=== PATIENT | male | born 1955 | race African-American/Black ===

== ENCOUNTER 2019-12-14 10:20 | Observation (INO) ==
[2019-12-14] MEDS ORDERED: ONDANSETRON 4 MG/2 ML VIAL IV STA (10:49)
[2019-12-14 11:50] LABS: Basophils % 0.7 % (0.0-0.8); Eosinophils # 0.1 10*3/uL (0.0-0.87); Eosinophils % 3.3 % (0.00-10.9); Hematocrit 27.8 VOL% (42.0-52.0); Hemoglobin 8.3 GM/DL (14.0-18.0); Immature Granulocytes % 0.2 %; Immature Granulocytes Absolute 0.01 #; Lymphocytes # 1.3 10*3/uL (1.4-4.0); Lymphocytes % 29.6 % (21.2-54.2); Mean Corpuscular HGB Conc 29.9 GM/DL (32-36); Mean Corpuscular Volume 81.8 FL (87-102); Mean Platelet Volume 9.7 FL (9.6-12.0); Monocytes % 11.5 % (1.7-12.7); Neutrophils % 54.7 % (38.7-73.9); Platelet Count 219 T/CUMM (130-400); Red Cell Distribution Width 22.9 % (9.3-17.3); White Blood Count 4.3 T/CUMM (4-12)
[2019-12-14] MEDS ORDERED: AMINOCAPROIC ACID 500 MG TABLET PO ONE (11:54)
[2019-12-14 12:12] LABS: INR 1.4; PT Patient Result 14.7 SECS (9.6-12.2); Partial Thromboplastin Time 26.1 SECS (20.8-36.0)
[2019-12-14 12:15] LABS: Albumin 3.4 G/DL (3.4-5.0); Bilirubin,Total 0.7 MG/DL (0.2-1.0); Calcium 9.5 MG/DL (8.5-10.1); Osmolality,Calculated 279.5 MOS/KG (273-304); Total Protein 7.7 G/DL (6.4-8.3)
[2019-12-14 12:30] LABS: Anisocytosis 1+; Burr Cells Few; Platelet Estimate Normal; Poikilocytosis 1+
[2019-12-14] MEDS ORDERED: TRANEXAMIC ACID 1,000 MG in SODIUM CHLORIDE 0.9% 100 ML IV ONE (12:30)
[2019-12-14 12:31] LABS: Acanthocytes Few
[2019-12-14] MEDS ORDERED: ONDANSETRON 4 MG/2 ML VIAL IV PRN (15:43)
[2019-12-14] MEDS ORDERED: GLUCAGON 1 MG VIAL IM PRN (15:58)
[2019-12-14] MEDS ORDERED: DEXTROSE 10% 250 ML BAG IV PRN (15:58)
[2019-12-14] MEDS ORDERED: SODIUM CHLOR 0.9% KCL 20 MEQ 20 MEQ/1,000 ML BAG IV SCH (16:00)
[2019-12-14] MEDS ORDERED: SODIUM CHLORIDE 0.9% 1,000 ML IV SCH (16:00)
[2019-12-14] MEDS: INSULIN LISPRO 100 UNIT/ML SUBCUT SCH ×2 (16:11→21:26)
[2019-12-14 17:08] LABS: Hematocrit 26.4 VOL% (42.0-52.0); Hemoglobin 8.1 GM/DL (14.0-18.0)
[2019-12-14] MEDS ORDERED: ATORVASTATIN 80 MG TABLET PO SCH (21:00)
[2019-12-14] MEDS ORDERED: APIXABAN 5 MG TABLET PO SCH (21:00)
[2019-12-14] MEDS ORDERED: FUROSEMIDE 80 MG TABLET PO SCH (21:00)
[2019-12-14] MEDS: carvediloL 25 MG TABLET PO SCH (21:18)
[2019-12-15 05:25] LABS: Basophils % 0.4 % (0.0-0.8); Eosinophils # 0.2 10*3/uL (0.0-0.87); Eosinophils % 5.1 % (0.00-10.9); Hematocrit 26.5 VOL% (42.0-52.0); Hemoglobin 7.8 GM/DL (14.0-18.0); Immature Granulocytes % 0.2 %; Immature Granulocytes Absolute 0.01 #; Lymphocytes # 1.1 10*3/uL (1.4-4.0); Lymphocytes % 24.1 % (21.2-54.2); Mean Corpuscular HGB Conc 29.4 GM/DL (32-36); Mean Corpuscular Volume 81.5 FL (87-102); Mean Platelet Volume 9.8 FL (9.6-12.0); Monocytes % 12.2 % (1.7-12.7); Platelet Count 258 T/CUMM (130-400); Red Blood Count 3.25 MC/CUMM (3.8-5.5); Red Cell Distribution Width 23.1 % (9.3-17.3); White Blood Count 4.7 T/CUMM (4-12)
[2019-12-15 05:49] LABS: Albumin 3.1 G/DL (3.4-5.0); Bilirubin,Total 0.7 MG/DL (0.2-1.0); Calcium 8.8 MG/DL (8.5-10.1); Osmolality,Calculated 280.5 MOS/KG (273-304); Total Protein 6.6 G/DL (6.4-8.3)
[2019-12-15 06:27] LABS: Anisocytosis 1+; Hypochromasia 1+; Ovalocytes 1+; Platelet Estimate Adequate
[2019-12-15] MEDS ORDERED: LEVOTHYROXINE 75 MCG TABLET PO SCH (06:30)
[2019-12-15] MEDS ORDERED: ASPIRIN EC 81 MG TABLET PO SCH (09:00)
[2019-12-15] MEDS ORDERED: AMIODARONE 200 MG TABLET PO SCH (09:00)
[2019-12-15] MEDS ORDERED: amLODIPine 10 MG TABLET PO SCH (09:00)
[2019-12-15] MEDS ORDERED: PANTOPRAZOLE 40 MG TABLET PO SCH (09:00)
[2019-12-15] MEDS: INSULIN LISPRO 100 UNIT/ML SUBCUT SCH (09:30)
[2019-12-15] MEDS: carvediloL 25 MG TABLET PO SCH (09:30)
[2019-12-15 14:40] VITALS: BP 119/79
== END 2019-12-15 12:34 | disposition home or self-care (01) ==
LOC: N.ED 10:20 → N.EDINP 10:20 → N.2E 15:24
PROVIDERS: ADMIT Internal Medicine; ATTEND Internal Medicine

== ENCOUNTER 2020-03-02 20:44 | Inpatient (IN) ==
[2020-03-02 22:48] LABS: Basophils % 0.7 % (0.0-0.8); Eosinophils # 0.7 10*3/uL (0.0-0.87); Eosinophils % 12.2 % (0.00-10.9); Hematocrit 26.8 VOL% (42.0-52.0); Hemoglobin 7.6 GM/DL (14.0-18.0); Immature Granulocytes % 0.2 %; Immature Granulocytes Absolute 0.01 #; Lymphocytes # 1.2 10*3/uL (1.4-4.0); Lymphocytes % 21.8 % (21.2-54.2); Mean Corpuscular HGB Conc 28.4 GM/DL (32-36); Mean Corpuscular Volume 73.6 FL (87-102); Mean Platelet Volume 10.3 FL (9.6-12.0); Monocytes % 8.7 % (1.7-12.7); NRBC # 0.03 10*3/uL; Neutrophils % 56.4 % (38.7-73.9); Platelet Count 265 T/CUMM (130-400); Red Blood Count 3.64 MC/CUMM (3.8-5.5); Red Cell Distribution Width 21.3 % (9.3-17.3); White Blood Count 5.7 T/CUMM (4-12)
[2020-03-02 23:06] LABS: Albumin 3.5 G/DL (3.4-5.0); Bilirubin,Total 0.6 MG/DL (0.2-1.0); Calcium 8.7 MG/DL (8.5-10.1); Total Protein 8.3 G/DL (6.4-8.3)
[2020-03-02 23:17] LABS: Eosinophils 13 % (0-10); Lymphocytes 21 % (20-55); Segmented Neutrophils 55 % (50-85); Total Cells Counted 100
[2020-03-02 23:19] LABS: Acanthocytes 1+; Atypical Lymphocytes Few; Hypochromasia 2+; Ovalocytes 1+; Platelet Estimate Normal; Reactive Lymphocytes Few
[2020-03-02 23:20] LABS: Schistocytes Few
[2020-03-02 23:21] LABS: Poikilocytosis 1+
[2020-03-02] MEDS ORDERED: SODIUM CHLORIDE 0.9% 1,000 ML IV PRN (23:32)
[2020-03-02] MEDS ORDERED: FUROSEMIDE 40 MG/4 ML VIAL IV STA (23:49)
[2020-03-03] MEDS ORDERED: ONDANSETRON 4 MG/2 ML VIAL IV PRN (05:46)
[2020-03-03] MEDS ORDERED: ACETAMINOPHEN 325 MG TABLET PO PRN (05:46)
[2020-03-03] MEDS ORDERED: DOCUSATE SODIUM 100 MG CAPSULE PO PRN (05:46)
[2020-03-03] MEDS ORDERED: DEXTROSE 10% 250 ML BAG IV PRN (05:46)
[2020-03-03] MEDS ORDERED: GLUCAGON 1 MG VIAL IM PRN (05:46)
[2020-03-03] MEDS ORDERED: MAGNESIUM SULF RIDER 2 GM in PREMIX 1 EACH IV PRN (05:46)
[2020-03-03] MEDS ORDERED: MAGNESIUM SULF RIDER 4 GM in PREMIX 1 EACH IV PRN (05:46)
[2020-03-03] MEDS: INSULIN LISPRO 100 UNIT/ML SUBCUT SCH ×4 (09:20→21:06)
[2020-03-03] MEDS: PANTOPRAZOLE 40 MG TABLET PO SCH (09:20)
[2020-03-03] MEDS: ISOSORBIDE MONONITRATE 30 MG TABLET PO SCH (12:50)
[2020-03-03] MEDS ORDERED: FUROSEMIDE 40 MG/4 ML VIAL IV SCH (16:00)
[2020-03-03] MEDS: hydrALAZINE 10 MG TABLET PO SCH ×2 (17:10→21:06)
[2020-03-03] MEDS: APIXABAN 5 MG TABLET PO SCH (21:05)
[2020-03-03] MEDS: ATORVASTATIN 80 MG TABLET PO SCH (21:05)
[2020-03-03] MEDS: carvediloL 25 MG TABLET PO SCH (21:05)
[2020-03-03] MEDS: FUROSEMIDE 40 MG/4 ML VIAL IV SCH (21:06)
[2020-03-04] MEDS ORDERED: LEVOTHYROXINE 75 MCG TABLET PO SCH (06:30)
[2020-03-04 06:41] LABS: Basophils % 0.7 % (0.0-0.8); Eosinophils # 0.8 10*3/uL (0.0-0.87); Eosinophils % 13.3 % (0.00-10.9); Hematocrit 28.6 VOL% (42.0-52.0); Hemoglobin 8.5 GM/DL (14.0-18.0); Immature Granulocytes % 0.3 %; Immature Granulocytes Absolute 0.02 #; Lymphocytes % 17.8 % (21.2-54.2); Mean Corpuscular HGB Conc 29.7 GM/DL (32-36); Mean Corpuscular Volume 73.7 FL (87-102); Monocytes % 6.4 % (1.7-12.7); Neutrophils % 61.5 % (38.7-73.9); Platelet Count 283 T/CUMM (130-400); Red Blood Count 3.88 MC/CUMM (3.8-5.5); Red Cell Distribution Width 21.6 % (9.3-17.3); White Blood Count 5.8 T/CUMM (4-12)
[2020-03-04 07:10] LABS: Eosinophils 15 % (0-10); Hypochromasia 1+; Lymphocytes 9 % (20-55); Nucleated Red Blood Cells 1 (0-5); Ovalocytes Slight; Platelet Estimate Adequate; Segmented Neutrophils 71 % (50-85); Total Cells Counted 100
[2020-03-04 07:33] LABS: Calcium 8.7 MG/DL (8.5-10.1); Ferritin 20.8 ng/ml (26-388); Osmolality,Calculated 280.5 MOS/KG (273-304); Risk Ratio 2.83
[2020-03-04 07:58] LABS: Folate 6.9 NG/ML (5.4-24.0); Vitamin B12 393 PG/ML (211-911)
[2020-03-04 08:18] LABS: Sedimentation Rate-Westergren 21 MM/HR (0-20)
[2020-03-04] MEDS ORDERED: ASPIRIN EC 81 MG TABLET PO SCH (09:00)
[2020-03-04] MEDS: ISOSORBIDE MONONITRATE 30 MG TABLET PO SCH (09:30)
[2020-03-04] MEDS: amLODIPine 10 MG TABLET PO SCH (09:31)
[2020-03-04] MEDS: PANTOPRAZOLE 40 MG TABLET PO SCH (09:31)
[2020-03-04] MEDS: hydrALAZINE 10 MG TABLET PO SCH ×3 (09:31→22:35)
[2020-03-04] MEDS: APIXABAN 5 MG TABLET PO SCH (09:31)
[2020-03-04] MEDS: carvediloL 25 MG TABLET PO SCH ×2 (09:31→16:35)
[2020-03-04] MEDS: POTASSIUM CHLORIDE 20 MEQ TABLET PO PRN (09:32)
[2020-03-04] MEDS: AMIODARONE 200 MG TABLET PO SCH (09:32)
[2020-03-04] MEDS: IRON SUCROSE 200 MG in SODIUM CHLORIDE 0.9% 100 ML IV SCH (09:33)
[2020-03-04] MEDS: FUROSEMIDE 40 MG/4 ML VIAL IV SCH ×2 (09:33→21:25)
[2020-03-04] MEDS: INSULIN LISPRO 100 UNIT/ML SUBCUT SCH ×4 (09:45→21:24)
[2020-03-04 11:34] LABS: Hemoglobin A1 (Alkaline) 97.7 % (96.5-98.5); Hemoglobin A2 (Alkaline) 2.3 % (1.5-3.5)
[2020-03-04] MEDS ORDERED: POTASSIUM CHLORIDE 20 MEQ TABLET PO ONE (11:35)
[2020-03-04] MEDS: metOLazone 5 MG TABLET PO SCH (12:04)
[2020-03-04] MEDS: ATORVASTATIN 80 MG TABLET PO SCH (21:24)
[2020-03-05] MEDS: LEVOTHYROXINE 100 MCG VIAL IV SCH (06:08)
[2020-03-05 06:27] LABS: Basophils % 0.6 % (0.0-0.8); Eosinophils # 0.8 10*3/uL (0.0-0.87); Eosinophils % 16.9 % (0.00-10.9); Hematocrit 25.2 VOL% (42.0-52.0); Hemoglobin 7.5 GM/DL (14.0-18.0); Immature Granulocytes % 0.2 %; Immature Granulocytes Absolute 0.01 #; Lymphocytes # 1.1 10*3/uL (1.4-4.0); Lymphocytes % 23.5 % (21.2-54.2); Mean Corpuscular HGB Conc 29.8 GM/DL (32-36); Mean Platelet Volume 10.7 FL (9.6-12.0); Monocytes % 8.9 % (1.7-12.7); NRBC # 0.04 10*3/uL; Neutrophils % 49.9 % (38.7-73.9); Platelet Count 272 T/CUMM (130-400); Red Blood Count 3.45 MC/CUMM (3.8-5.5); Red Cell Distribution Width 21.9 % (9.3-17.3); White Blood Count 4.9 T/CUMM (4-12)
[2020-03-05 06:49] LABS: Calcium 9.2 MG/DL (8.5-10.1)
[2020-03-05 07:12] LABS: Band Neutrophils 1 % (0-10); Eosinophils 21 % (0-10); Lymphocytes 24 % (20-55); Platelet Estimate Normal; Segmented Neutrophils 50 % (50-85); Total Cells Counted 100
[2020-03-05 07:13] LABS: Anisocytosis 2+; Burr Cells Few; Hypochromasia 1+; Poikilocytosis 1+; Target Cells Few
[2020-03-05] MEDS: PANTOPRAZOLE 40 MG TABLET PO SCH (08:31)
[2020-03-05] MEDS: FUROSEMIDE 40 MG/4 ML VIAL IV SCH ×2 (08:32→21:37)
[2020-03-05] MEDS: MULTIVITAMIN (BEROCCA) TABLET PO SCH (08:32)
[2020-03-05] MEDS: hydrALAZINE 10 MG TABLET PO SCH ×3 (08:33→21:35)
[2020-03-05] MEDS: carvediloL 25 MG TABLET PO SCH ×2 (08:33→16:18)
[2020-03-05] MEDS: metOLazone 5 MG TABLET PO SCH (08:33)
[2020-03-05] MEDS: amLODIPine 10 MG TABLET PO SCH (08:33)
[2020-03-05] MEDS: ISOSORBIDE MONONITRATE 30 MG TABLET PO SCH (08:34)
[2020-03-05] MEDS: AMIODARONE 200 MG TABLET PO SCH (08:35)
[2020-03-05] MEDS: IRON SUCROSE 200 MG in SODIUM CHLORIDE 0.9% 100 ML IV SCH (09:54)
[2020-03-05] MEDS: INSULIN LISPRO 100 UNIT/ML SUBCUT SCH ×4 (09:55→21:35)
[2020-03-05] MEDS: ATORVASTATIN 80 MG TABLET PO SCH (21:36)
[2020-03-06] MEDS: LEVOTHYROXINE 100 MCG VIAL IV SCH (06:03)
[2020-03-06 07:06] LABS: Basophils # 0.1 10*3/uL (0.0-0.2); Basophils % 0.9 % (0.0-0.8); Eosinophils % 16.9 % (0.00-10.9); Hematocrit 26.5 VOL% (42.0-52.0); Hemoglobin 7.8 GM/DL (14.0-18.0); Immature Granulocytes % 0.4 %; Immature Granulocytes Absolute 0.02 #; Lymphocytes # 1.2 10*3/uL (1.4-4.0); Lymphocytes % 21.9 % (21.2-54.2); Mean Corpuscular HGB Conc 29.4 GM/DL (32-36); Mean Platelet Volume 10.2 FL (9.6-12.0); Monocytes % 10.7 % (1.7-12.7); NRBC # 0.07 10*3/uL; Neutrophils % 49.2 % (38.7-73.9); Platelet Count 283 T/CUMM (130-400); Red Blood Count 3.63 MC/CUMM (3.8-5.5); Red Cell Distribution Width 22.6 % (9.3-17.3); White Blood Count 5.6 T/CUMM (4-12)
[2020-03-06 07:24] LABS: Calcium 9.6 MG/DL (8.5-10.1); Osmolality,Calculated 276.1 MOS/KG (273-304)
[2020-03-06] MEDS: ISOSORBIDE MONONITRATE 30 MG TABLET PO SCH (08:51)
[2020-03-06] MEDS: AMIODARONE 200 MG TABLET PO SCH (08:52)
[2020-03-06] MEDS: MULTIVITAMIN (BEROCCA) TABLET PO SCH (08:52)
[2020-03-06] MEDS: POTASSIUM CHLORIDE 20 MEQ TABLET PO PRN ×2 (08:52→11:42)
[2020-03-06] MEDS: metOLazone 5 MG TABLET PO SCH (08:53)
[2020-03-06] MEDS: hydrALAZINE 10 MG TABLET PO SCH ×3 (08:53→20:57)
[2020-03-06] MEDS: PANTOPRAZOLE 40 MG TABLET PO SCH (08:54)
[2020-03-06] MEDS: FUROSEMIDE 40 MG/4 ML VIAL IV SCH (08:54)
[2020-03-06] MEDS: carvediloL 25 MG TABLET PO SCH ×2 (08:54→16:36)
[2020-03-06] MEDS: IRON SUCROSE 200 MG in SODIUM CHLORIDE 0.9% 100 ML IV SCH (08:55)
[2020-03-06] MEDS: INSULIN LISPRO 100 UNIT/ML SUBCUT SCH ×4 (09:32→20:52)
[2020-03-06 09:50] LABS: Acanthocytes Few; Atypical Lymphocytes Few; Band Neutrophils 1 % (0-10); Burr Cells Slight; Eosinophils 12 % (0-10); Hypochromasia 4+; Lymphocytes 23 % (20-55); Ovalocytes Few; Polychromasia Slight; Reactive Lymphocytes Few; Schistocytes Few; Segmented Neutrophils 54 % (50-85); Total Cells Counted 100
[2020-03-06 09:51] LABS: Platelet Estimate Normal
[2020-03-06] MEDS: POTASSIUM CHLORIDE 20 MEQ TABLET PO SCH (16:10)
[2020-03-06] MEDS: FUROSEMIDE 40 MG TABLET PO SCH (16:10)
[2020-03-06] MEDS: ATORVASTATIN 80 MG TABLET PO SCH (20:52)
[2020-03-07 07:38] LABS: Basophils % 0.5 % (0.0-0.8); Eosinophils # 0.9 10*3/uL (0.0-0.87); Eosinophils % 16.2 % (0.00-10.9); Hematocrit 25.5 VOL% (42.0-52.0); Hemoglobin 7.9 GM/DL (14.0-18.0); Immature Granulocytes % 0.4 %; Immature Granulocytes Absolute 0.02 #; Lymphocytes # 1.1 10*3/uL (1.4-4.0); Lymphocytes % 19.4 % (21.2-54.2); Mean Platelet Volume 10.2 FL (9.6-12.0); Monocytes % 8.4 % (1.7-12.7); NRBC # 0.05 10*3/uL; Neutrophils % 55.1 % (38.7-73.9); Platelet Count 272 T/CUMM (130-400); Red Blood Count 3.54 MC/CUMM (3.8-5.5); Red Cell Distribution Width 23.2 % (9.3-17.3); White Blood Count 5.6 T/CUMM (4-12)
[2020-03-07 07:45] LABS: Calcium 9.4 MG/DL (8.5-10.1); Osmolality,Calculated 278.1 MOS/KG (273-304)
[2020-03-07 08:24] VITALS: BP 97/64
[2020-03-07] MEDS: INSULIN LISPRO 100 UNIT/ML SUBCUT SCH (08:38)
[2020-03-07] MEDS: ISOSORBIDE MONONITRATE 30 MG TABLET PO SCH (08:39)
[2020-03-07] MEDS: MULTIVITAMIN (BEROCCA) TABLET PO SCH (08:39)
[2020-03-07] MEDS: carvediloL 25 MG TABLET PO SCH (08:40)
[2020-03-07] MEDS: FUROSEMIDE 40 MG TABLET PO SCH (08:40)
[2020-03-07] MEDS: hydrALAZINE 10 MG TABLET PO SCH (08:40)
[2020-03-07] MEDS: AMIODARONE 200 MG TABLET PO SCH (08:40)
[2020-03-07] MEDS: POTASSIUM CHLORIDE 20 MEQ TABLET PO SCH (08:40)
[2020-03-07] MEDS: PANTOPRAZOLE 40 MG TABLET PO SCH (08:40)
[2020-03-07] MEDS: IRON SUCROSE 200 MG in SODIUM CHLORIDE 0.9% 100 ML IV SCH (08:41)
[2020-03-07] MEDS: LEVOTHYROXINE 100 MCG VIAL IV SCH (08:42)
[2020-03-07 09:03] LABS: Band Neutrophils 1 % (0-10); Eosinophils 21 % (0-10); Lymphocytes 19 % (20-55); Nucleated Red Blood Cells 1 (0-5); Segmented Neutrophils 50 % (50-85); Total Cells Counted 100
[2020-03-07 09:04] LABS: Anisocytosis 2+; Basophilic Stippling Slight; Burr Cells Few; Hypochromasia 1+; Macrocytosis 1+; Platelet Estimate Normal; Poikilocytosis 1+; Target Cells Few
== END 2020-03-07 11:55 | disposition home or self-care (01) | DRG 291 ==
LOC: N.ED 20:44 → N.EDINP 03-03 02:58 → N.TELEN 03-03 16:22
PROVIDERS: ADMIT Internal Medicine; ATTEND Internal Medicine

== ENCOUNTER 2020-03-20 02:24 | Observation (INO) ==
[2020-03-20 02:59] LABS: Basophils % 0.6 % (0.0-0.8); Eosinophils # 0.1 10*3/uL (0.0-0.87); Eosinophils % 1.9 % (0.00-10.9); Hematocrit 37.1 VOL% (42.0-52.0); Immature Granulocytes % 0.3 %; Immature Granulocytes Absolute 0.02 #; Lymphocytes # 1.1 10*3/uL (1.4-4.0); Lymphocytes % 17.9 % (21.2-54.2); Mean Corpuscular HGB Conc 28.8 GM/DL (32-36); Monocytes % 6.1 % (1.7-12.7); Neutrophils % 73.2 % (38.7-73.9); Platelet Count 218 T/CUMM (130-400); Red Blood Count 4.58 MC/CUMM (3.8-5.5); Red Cell Distribution Width 30.3 % (9.3-17.3); White Blood Count 6.4 T/CUMM (4-12)
[2020-03-20] MEDS ORDERED: ONDANSETRON 4 MG/2 ML VIAL IV STA (03:07)
[2020-03-20] MEDS ORDERED: INSULIN REGULAR 100 UNIT/ML IV STA (03:07)
[2020-03-20 03:22] LABS: Bilirubin,Total 1.3 MG/DL (0.2-1.0); Osmolality,Calculated 280.5 MOS/KG (273-304); Total Protein 9.6 G/DL (6.4-8.3)
[2020-03-20] MEDS ORDERED: SODIUM CHLORIDE 0.9% 500 ML IV STA (03:24)
[2020-03-20 03:25] LABS: Hemoglobin 10.8 GM/DL (14.0-18.0)
[2020-03-20] MEDS ORDERED: FUROSEMIDE 20 MG/2 ML VIAL IV STA (03:29)
[2020-03-20 03:35] LABS: INR 1.4; PT Patient Result 14.9 SECS (9.8-11.9)
[2020-03-20 03:42] LABS: Free T4 (Free Thyroxine) 0.98 NG/DL (0.76-1.46); Troponin I < 0.015 NG/ML (0.00-0.045)
[2020-03-20 04:29] LABS: Apearance,Urine CLEAR (Clear); Bacteria,Urine Occasional /HPF (Few); Bilirubin,Urine Negative (Negative); Blood, Urine Negative (Negative); Glucose,Urine (UA) >=500 mg/dL (Negative); Ketones,Urine Negative (Negative); Nitrite,Urine Negative (Negative); Protein,Urine Negative; RBC,Urine 5 /HPF (0-4); Squamous Epithelial Cell,Urine Occasional /HPF (0-10); Urine Color Yellow (Yellow); Urine Specific Gravity 1.024 (1.001-1.035); Urine Urobilinogen < 2.0 EU/DL (0.2-1.0); WBC,Urine 15 /HPF (0-6)
[2020-03-20 05:14] LABS: Hypochromasia 1+; Macrocytosis Slight; Platelet Estimate Adequate
[2020-03-20] MEDS ORDERED: DEXTROSE 10% 250 ML BAG IV PRN (05:34)
[2020-03-20] MEDS ORDERED: MAGNESIUM SULF RIDER 4 GM in PREMIX 1 EACH IV PRN (05:34)
[2020-03-20] MEDS ORDERED: MAGNESIUM SULF RIDER 2 GM in PREMIX 1 EACH IV PRN (05:34)
[2020-03-20] MEDS ORDERED: GLUCAGON 1 MG VIAL IM PRN (05:34)
[2020-03-20] MEDS: INSULIN REGULAR 100 UNIT/ML SUBCUT SCH ×4 (07:56→21:04)
[2020-03-20] MEDS ORDERED: FUROSEMIDE 40 MG/4 ML VIAL IV SCH (08:00)
[2020-03-20] MEDS: PANTOPRAZOLE 40 MG TABLET PO SCH (09:03)
[2020-03-20] MEDS: ENOXAPARIN 40 MG/0.4 ML SYRINGE SUBCUT SCH (09:03)
[2020-03-20] MEDS: ISOSORBIDE MONONITRATE 30 MG TABLET PO SCH (10:12)
[2020-03-20] MEDS: LEVOTHYROXINE 75 MCG TABLET PO SCH (10:12)
[2020-03-20] MEDS: AMIODARONE 200 MG TABLET PO SCH (10:12)
[2020-03-20] MEDS: carvediloL 25 MG TABLET PO SCH ×2 (10:12→21:04)
[2020-03-20] MEDS: hydrALAZINE 10 MG TABLET PO SCH ×3 (10:12→21:04)
[2020-03-20] MEDS: glipiZIDE 5 MG TABLET PO SCH (16:32)
[2020-03-20] MEDS: ATORVASTATIN 80 MG TABLET PO SCH (21:04)
[2020-03-20] MEDS: ACETAMINOPHEN 325 MG TABLET PO PRN (21:08)
[2020-03-21 02:46] LABS: Basophils % 0.5 % (0.0-0.8); Eosinophils # 0.1 10*3/uL (0.0-0.87); Eosinophils % 1.9 % (0.00-10.9); Hematocrit 29.7 VOL% (42.0-52.0); Hemoglobin 8.6 GM/DL (14.0-18.0); Immature Granulocytes % 0.3 %; Immature Granulocytes Absolute 0.02 #; Lymphocytes % 17.6 % (21.2-54.2); Mean Corpuscular Volume 80.5 FL (87-102); Mean Platelet Volume 10.8 FL (9.6-12.0); NRBC # 0.02 10*3/uL; Neutrophils % 70.7 % (38.7-73.9); Platelet Count 279 T/CUMM (130-400); Red Blood Count 3.69 MC/CUMM (3.8-5.5); Red Cell Distribution Width 28.8 % (9.3-17.3); White Blood Count 5.8 T/CUMM (4-12)
[2020-03-21 03:12] LABS: Calcium 8.8 MG/DL (8.5-10.1)
[2020-03-21 03:21] LABS: Albumin 3.3 G/DL (3.4-5.0); Bilirubin,Total 1.8 MG/DL (0.2-1.0); Calcium 8.7 MG/DL (8.5-10.1); Osmolality,Calculated 285.7 MOS/KG (273-304); Total Protein 7.8 G/DL (6.4-8.3)
[2020-03-21] MEDS: LEVOTHYROXINE 75 MCG TABLET PO SCH (06:01)
[2020-03-21] MEDS ORDERED: SODIUM CHLORIDE 0.9% 1,000 ML IV PRN (08:41)
[2020-03-21] MEDS: INSULIN REGULAR 100 UNIT/ML SUBCUT SCH ×4 (09:15→21:15)
[2020-03-21] MEDS: ENOXAPARIN 40 MG/0.4 ML SYRINGE SUBCUT SCH (09:15)
[2020-03-21] MEDS: carvediloL 25 MG TABLET PO SCH ×2 (09:16→21:14)
[2020-03-21] MEDS: hydrALAZINE 10 MG TABLET PO SCH ×3 (09:16→21:13)
[2020-03-21] MEDS: DOXYCYCLINE HYCLATE 100 MG CAPSULE PO SCH ×2 (09:16→21:13)
[2020-03-21] MEDS: PANTOPRAZOLE 40 MG TABLET PO SCH (09:16)
[2020-03-21] MEDS: glipiZIDE 5 MG TABLET PO SCH ×2 (09:16→16:32)
[2020-03-21] MEDS: FUROSEMIDE 40 MG TABLET PO SCH (09:16)
[2020-03-21] MEDS: ISOSORBIDE MONONITRATE 30 MG TABLET PO SCH (09:16)
[2020-03-21] MEDS: AMIODARONE 200 MG TABLET PO SCH (09:16)
[2020-03-21] MEDS: ACETAMINOPHEN 325 MG TABLET PO PRN (19:17)
[2020-03-21 19:28] LABS: Hematocrit 35.6 VOL% (42.0-52.0)
[2020-03-21 19:31] LABS: Hemoglobin 10.6 GM/DL (14.0-18.0)
[2020-03-21] MEDS: HEPARIN 5,000 UNIT/1 ML VIAL SUBCUT SCH (21:11)
[2020-03-21] MEDS: cefOXitin 1,000 MG in SYRINGE 1 EACH IV SCH (21:12)
[2020-03-21] MEDS: ATORVASTATIN 80 MG TABLET PO SCH (21:13)
[2020-03-22] MEDS: cefOXitin 1,000 MG in SYRINGE 1 EACH IV SCH ×2 (05:58→11:55)
[2020-03-22] MEDS: LEVOTHYROXINE 75 MCG TABLET PO SCH (06:01)
[2020-03-22 06:53] LABS: Basophils % 0.7 % (0.0-0.8); Eosinophils # 0.1 10*3/uL (0.0-0.87); Eosinophils % 1.8 % (0.00-10.9); Hematocrit 34.8 VOL% (42.0-52.0); Hemoglobin 10.4 GM/DL (14.0-18.0); Immature Granulocytes % 0.4 %; Immature Granulocytes Absolute 0.02 #; Lymphocytes # 1.2 10*3/uL (1.4-4.0); Lymphocytes % 20.7 % (21.2-54.2); Mean Corpuscular HGB Conc 29.9 GM/DL (32-36); Mean Corpuscular Volume 80.4 FL (87-102); Mean Platelet Volume 11.1 FL (9.6-12.0); Monocytes % 8.1 % (1.7-12.7); NRBC # 0.04 10*3/uL; Neutrophils % 68.3 % (38.7-73.9); Platelet Count 291 T/CUMM (130-400); Red Blood Count 4.33 MC/CUMM (3.8-5.5); Red Cell Distribution Width 28.1 % (9.3-17.3); White Blood Count 5.6 T/CUMM (4-12)
[2020-03-22 07:14] LABS: % Iron Saturation 10.5 % (18-50); Calcium 9.1 MG/DL (8.5-10.1); Ferritin 215.9 ng/ml (26-388); Osmolality,Calculated 281.2 MOS/KG (273-304)
[2020-03-22 07:21] LABS: Parathyroid Hormone Intact 158.5 PG/ML (18.4-80.1)
[2020-03-22 07:43] LABS: Folate 13.9 NG/ML (5.4-24.0); Vitamin B12 464 PG/ML (211-911)
[2020-03-22] MEDS: DOXYCYCLINE HYCLATE 100 MG CAPSULE PO SCH (10:06)
[2020-03-22] MEDS: AMIODARONE 200 MG TABLET PO SCH (10:06)
[2020-03-22] MEDS: carvediloL 25 MG TABLET PO SCH ×2 (10:06→21:31)
[2020-03-22] MEDS: PANTOPRAZOLE 40 MG TABLET PO SCH (10:07)
[2020-03-22] MEDS: FUROSEMIDE 40 MG TABLET PO SCH (10:07)
[2020-03-22] MEDS: glipiZIDE 5 MG TABLET PO SCH ×2 (10:07→16:53)
[2020-03-22] MEDS: ISOSORBIDE MONONITRATE 30 MG TABLET PO SCH (10:07)
[2020-03-22] MEDS: INSULIN REGULAR 100 UNIT/ML SUBCUT SCH ×4 (10:08→21:37)
[2020-03-22] MEDS: HEPARIN 5,000 UNIT/1 ML VIAL SUBCUT SCH ×2 (10:10→21:33)
[2020-03-22] MEDS ORDERED: IRON SUCROSE 300 MG in SODIUM CHLORIDE 0.9% 100 ML IV ONE (10:11)
[2020-03-22] MEDS: hydrALAZINE 10 MG TABLET PO SCH ×3 (10:13→21:31)
[2020-03-22 11:36] LABS: Sedimentation Rate-Westergren 24 MM/HR (0-20)
[2020-03-22] MEDS: ONDANSETRON 4 MG/2 ML VIAL IV PRN ×2 (11:51→16:54)
[2020-03-22] MEDS: CHOLECALCIFEROL 1,000 UNIT TABLET PO SCH (11:51)
[2020-03-22] MEDS: FERROUS SULFATE 325 MG TABLET PO SCH (11:51)
[2020-03-22 12:05] LABS: Target Cells Few
[2020-03-22 12:06] LABS: Anisocytosis 1+; Burr Cells Few; Hypochromasia 2+; Microcytosis 1+; Ovalocytes 1+
[2020-03-22 12:07] LABS: Platelet Estimate Adequate; Polychromasia Few; Schistocytes Few
[2020-03-22] MEDS: metroNIDAZOLE 500 MG TABLET PO SCH ×2 (14:51→21:31)
[2020-03-22] MEDS ORDERED: MELATONIN 3 MG TABLET PO PRN (18:16)
[2020-03-22] MEDS ORDERED: sitaGLIPtin 25 MG TABLET PO SCH (21:00)
[2020-03-22] MEDS: ATORVASTATIN 80 MG TABLET PO SCH (21:31)
[2020-03-22] MEDS: CIPROFLOXACIN 250 MG TABLET PO SCH (21:31)
[2020-03-23 03:15] LABS: Calcium 8.9 MG/DL (8.5-10.1); Osmolality,Calculated 270.9 MOS/KG (273-304)
[2020-03-23] MEDS: LEVOTHYROXINE 75 MCG TABLET PO SCH (06:02)
[2020-03-23] MEDS: metroNIDAZOLE 500 MG TABLET PO SCH (06:02)
[2020-03-23] MEDS: glipiZIDE 5 MG TABLET PO SCH (07:32)
[2020-03-23] MEDS: INSULIN REGULAR 100 UNIT/ML SUBCUT SCH ×2 (08:46→12:10)
[2020-03-23] MEDS: CHOLECALCIFEROL 1,000 UNIT TABLET PO SCH (08:48)
[2020-03-23] MEDS: HEPARIN 5,000 UNIT/1 ML VIAL SUBCUT SCH (08:48)
[2020-03-23] MEDS: carvediloL 25 MG TABLET PO SCH (08:48)
[2020-03-23] MEDS: hydrALAZINE 10 MG TABLET PO SCH (08:49)
[2020-03-23] MEDS: PANTOPRAZOLE 40 MG TABLET PO SCH (08:49)
[2020-03-23] MEDS: FERROUS SULFATE 325 MG TABLET PO SCH (08:49)
[2020-03-23] MEDS: ISOSORBIDE MONONITRATE 30 MG TABLET PO SCH (08:49)
[2020-03-23] MEDS: AMIODARONE 200 MG TABLET PO SCH (08:49)
[2020-03-23] MEDS: CIPROFLOXACIN 250 MG TABLET PO SCH (09:25)
[2020-03-23] MEDS ORDERED: DOCUSATE SODIUM 100 MG CAPSULE PO SCH (11:00)
[2020-03-23] MEDS ORDERED: POLYETHYLENE GLYCOL POWDER 17 GM PACK PO SCH (11:00)
[2020-03-23 11:02] LABS: Hemoglobin A1 (Alkaline) 97.5 % (96.5-98.5); Hemoglobin A2 (Alkaline) 2.5 % (1.5-3.5)
[2020-03-23 13:17] VITALS: BP 103/73
== END 2020-03-23 15:32 | disposition home or self-care (01) ==
LOC: EDBD → EDUNIT# → N.EDINP 02:24 → N.ED 02:24 → SUPCPDRO 04:42 → N.4E 12:09
PROVIDERS: ADMIT Hospitalist; ATTEND Hospitalist

== ENCOUNTER 2020-03-26 17:49 | Inpatient (IN) ==
[2020-03-26] MEDS ORDERED: SODIUM CHLORIDE 0.9% 500 ML IV STA ×2 (19:12→20:39)
[2020-03-26 19:50] LABS: Basophils % 0.2 % (0.0-0.8); Eosinophils # 0.1 10*3/uL (0.0-0.87); Eosinophils % 0.9 % (0.00-10.9); Hematocrit 36.3 VOL% (42.0-52.0); Hemoglobin 10.8 GM/DL (14.0-18.0); Immature Granulocytes % 0.5 %; Immature Granulocytes Absolute 0.03 #; Lymphocytes % 15.9 % (21.2-54.2); Mean Corpuscular HGB Conc 29.8 GM/DL (32-36); Mean Corpuscular Volume 81.6 FL (87-102); Mean Platelet Volume 10.4 FL (9.6-12.0); Monocytes % 15.2 % (1.7-12.7); NRBC # 0.16 10*3/uL; Neutrophils % 67.3 % (38.7-73.9); Platelet Count 265 T/CUMM (130-400); Red Blood Count 4.45 MC/CUMM (3.8-5.5); Red Cell Distribution Width 29.6 % (9.3-17.3); White Blood Count 6.6 T/CUMM (4-12)
[2020-03-26 20:04] LABS: Alanine Aminotransferase 756 U/L (16-61); Albumin 3.6 G/DL (3.4-5.0); Alkaline Phosphatase 177 U/L (45-117); Aspartate Amino Transferase 577 U/L (0-37); Blood Urea Nitrogen 60 MG/DL (7-18); Calcium 8.8 MG/DL (8.5-10.1); Estimated Glom Filtration Rate 27 ML/MIN; Glucose 183 MG/DL (74-106); Osmolality,Calculated 279.9 MOS/KG (273-304); Total Protein 8.1 G/DL (6.4-8.3)
[2020-03-26 20:34] LABS: Apearance,Urine Slightly Hazy (Clear); Blood, Urine Negative (Negative); Glucose,Urine (UA) Negative (Negative); Hyaline Casts,Urine 39 /LPF (0-3); Ketones,Urine Negative (Negative); Mucus,Urine Occasional /LPF (Occasional); Nitrite,Urine Negative (Negative); Protein,Urine 30 MG/DL; RBC,Urine 4 /HPF (0-4); Squamous Epithelial Cell,Urine Few /HPF (0-10); Urine Color Amber (Yellow); Urine Specific Gravity 1.018 (1.001-1.035); WBC,Urine 11 /HPF (0-6)
[2020-03-26 20:35] LABS: Bilirubin,Urine Small mg/dL (Negative)
[2020-03-26] MEDS ORDERED: PIPERACILLIN/TAZOBACTAM 3,375 MG in SODIUM CHLORIDE 0.9% 100 ML IV STA ×2 (20:43→20:45)
[2020-03-26] MEDS ORDERED: MORPHINE 4 MG/1 ML VIAL ONE (20:55)
[2020-03-26] MEDS ORDERED: MORPHINE 4 MG/1 ML VIAL IV STA (20:57)
[2020-03-26] MEDS ORDERED: LACTATED RINGERS 1,000 ML IV ONE (21:10)
[2020-03-26] MEDS ORDERED: GLUCAGON 1 MG VIAL IM PRN (23:48)
[2020-03-26] MEDS ORDERED: ONDANSETRON 4 MG/2 ML VIAL IV PRN (23:48)
[2020-03-26] MEDS ORDERED: PROMETHAZINE 25 MG/1 ML VIAL IM PRN (23:48)
[2020-03-26] MEDS ORDERED: ALBUTEROL 2.5 MG/3 ML NEB RESP TX PRN (23:48)
[2020-03-27] MEDS: SODIUM CHLORIDE 0.9% 1,000 ML IV SCH ×3 (01:10→23:49)
[2020-03-27] MEDS: INSULIN REGULAR 100 UNIT/ML SUBCUT SCH ×5 (02:50→23:50)
[2020-03-27 05:06] LABS: Basophils % 0.2 % (0.0-0.8); Hematocrit 33.2 VOL% (42.0-52.0); Hemoglobin 10.1 GM/DL (14.0-18.0); Immature Granulocytes % 0.6 %; Immature Granulocytes Absolute 0.04 #; Lymphocytes # 0.6 10*3/uL (1.4-4.0); Lymphocytes % 9.6 % (21.2-54.2); Mean Corpuscular HGB Conc 30.4 GM/DL (32-36); Mean Corpuscular Volume 80.2 FL (87-102); Mean Platelet Volume 10.1 FL (9.6-12.0); Monocytes % 13.6 % (1.7-12.7); NRBC # 0.05 10*3/uL; Platelet Count 240 T/CUMM (130-400); Red Blood Count 4.14 MC/CUMM (3.8-5.5); Red Cell Distribution Width 29.6 % (9.3-17.3); White Blood Count 6.3 T/CUMM (4-12)
[2020-03-27] MEDS: PIPERACILLIN/TAZOBACTAM 3,375 MG in SODIUM CHLORIDE 0.9% 100 ML IV SCH ×3 (05:33→20:23)
[2020-03-27 05:37] LABS: Acanthocytes Few; Hypochromasia 1+; Microcytosis 1+; Target Cells Slight
[2020-03-27 05:38] LABS: Anisocytosis 1+; Ovalocytes Slight; Platelet Estimate Normal; Polychromasia Slight
[2020-03-27 06:31] LABS: Albumin 3.2 G/DL (3.4-5.0); Bilirubin,Total 1.4 MG/DL (0.2-1.0); Calcium 8.4 MG/DL (8.5-10.1); Osmolality,Calculated 286.4 MOS/KG (273-304); Total Protein 7.4 G/DL (6.4-8.3)
[2020-03-27] MEDS: PANTOPRAZOLE 40 MG VIAL IV SCH (10:01)
[2020-03-27] MEDS ORDERED: DEXTROSE 50% 25 GM/50 ML VIAL IV PRN (11:06)
[2020-03-27] MEDS: MORPHINE 4 MG/1 ML VIAL IV PRN (20:42)
[2020-03-28] MEDS: MORPHINE 4 MG/1 ML VIAL IV PRN ×2 (01:35→06:03)
[2020-03-28] MEDS: PIPERACILLIN/TAZOBACTAM 3,375 MG in SODIUM CHLORIDE 0.9% 100 ML IV SCH ×3 (06:05→20:39)
[2020-03-28 07:21] LABS: Albumin 3.2 G/DL (3.4-5.0); Bilirubin,Total 1.5 MG/DL (0.2-1.0); Calcium 8.3 MG/DL (8.5-10.1); Osmolality,Calculated 287.1 MOS/KG (273-304); Total Protein 7.2 G/DL (6.4-8.3)
[2020-03-28 07:31] LABS: Basophils % 0.5 % (0.0-0.8); Eosinophils % 0.5 % (0.00-10.9); Hematocrit 35.9 VOL% (42.0-52.0); Immature Granulocytes % 0.5 %; Immature Granulocytes Absolute 0.03 #; Lymphocytes # 1.1 10*3/uL (1.4-4.0); Lymphocytes % 19.5 % (21.2-54.2); Mean Corpuscular HGB Conc 29.2 GM/DL (32-36); Mean Corpuscular Volume 82.5 FL (87-102); Mean Platelet Volume 10.6 FL (9.6-12.0); Monocytes % 15.9 % (1.7-12.7); NRBC # 0.07 10*3/uL; Neutrophils % 63.1 % (38.7-73.9); Platelet Count 208 T/CUMM (130-400); Red Blood Count 4.35 MC/CUMM (3.8-5.5); Red Cell Distribution Width 30.4 % (9.3-17.3); White Blood Count 5.7 T/CUMM (4-12)
[2020-03-28 07:49] LABS: Hemoglobin 10.5 GM/DL (14.0-18.0)
[2020-03-28 08:27] LABS: Lymphocytes 22 % (20-55); Nucleated Red Blood Cells 4 (0-5); Platelet Estimate Adequate; Segmented Neutrophils 63 % (50-85); Total Cells Counted 100
[2020-03-28 08:28] LABS: Burr Cells Slight; Hypochromasia 1+
[2020-03-28 08:29] LABS: Microcytosis Slight
[2020-03-28] MEDS: INSULIN REGULAR 100 UNIT/ML SUBCUT SCH ×3 (08:54→19:10)
[2020-03-28] MEDS: SODIUM CHLORIDE 0.9% 1,000 ML IV SCH ×2 (10:30→20:40)
[2020-03-28] MEDS: PANTOPRAZOLE 40 MG VIAL IV SCH (10:30)
[2020-03-28] MEDS: ursodioL 300 MG CAPSULE PO SCH ×2 (12:00→20:37)
[2020-03-29] MEDS: INSULIN REGULAR 100 UNIT/ML SUBCUT SCH ×4 (00:27→17:12)
[2020-03-29 03:30] LABS: Basophils % 0.1 % (0.0-0.8); Eosinophils % 0.1 % (0.00-10.9); Hematocrit 37.6 VOL% (42.0-52.0); Hemoglobin 11.2 GM/DL (14.0-18.0); Immature Granulocytes % 0.5 %; Immature Granulocytes Absolute 0.04 #; Lymphocytes # 0.9 10*3/uL (1.4-4.0); Lymphocytes % 12.9 % (21.2-54.2); Mean Corpuscular HGB Conc 29.8 GM/DL (32-36); Mean Corpuscular Volume 81.4 FL (87-102); NRBC # 0.12 10*3/uL; Neutrophils % 76.4 % (38.7-73.9); Platelet Count 222 T/CUMM (130-400); Red Blood Count 4.62 MC/CUMM (3.8-5.5); Red Cell Distribution Width 30.3 % (9.3-17.3); White Blood Count 7.3 T/CUMM (4-12)
[2020-03-29 03:47] LABS: Albumin 3.1 G/DL (3.4-5.0); Bilirubin,Total 1.7 MG/DL (0.2-1.0); Calcium 8.5 MG/DL (8.5-10.1); Osmolality,Calculated 284.5 MOS/KG (273-304); Total Protein 7.6 G/DL (6.4-8.3)
[2020-03-29 04:35] LABS: Acanthocytes Few; Hypochromasia Slight; Platelet Estimate Adequate
[2020-03-29] MEDS: PIPERACILLIN/TAZOBACTAM 3,375 MG in SODIUM CHLORIDE 0.9% 100 ML IV SCH ×3 (05:15→21:16)
[2020-03-29] MEDS: SODIUM CHLORIDE 0.9% 1,000 ML IV SCH ×2 (07:00→21:01)
[2020-03-29] MEDS: PANTOPRAZOLE 40 MG VIAL IV SCH (10:00)
[2020-03-29] MEDS: ursodioL 300 MG CAPSULE PO SCH ×2 (10:00→21:01)
[2020-03-29] MEDS ORDERED: POLYETHYLENE GLYCOL POWDER 17 GM PACK PO PRN (11:13)
[2020-03-29] MEDS: AMIODARONE 200 MG TABLET PO SCH (12:46)
[2020-03-29] MEDS: ENOXAPARIN 100 MG/ML SYRINGE SUBCUT SCH (18:27)
[2020-03-29] MEDS ORDERED: ATORVASTATIN 80 MG TABLET PO SCH (21:00)
[2020-03-29] MEDS: DOCUSATE SODIUM 100 MG CAPSULE PO SCH (21:01)
[2020-03-30] MEDS: SODIUM CHLORIDE 0.9% 1,000 ML IV SCH ×2 (02:17→06:16)
[2020-03-30] MEDS: PIPERACILLIN/TAZOBACTAM 3,375 MG in SODIUM CHLORIDE 0.9% 100 ML IV SCH ×3 (05:10→21:59)
[2020-03-30] MEDS: INSULIN REGULAR 100 UNIT/ML SUBCUT SCH ×4 (05:39→17:34)
[2020-03-30 06:54] LABS: Albumin 3.1 G/DL (3.4-5.0); Bilirubin,Total 2.5 MG/DL (0.2-1.0); Calcium 8.5 MG/DL (8.5-10.1); Osmolality,Calculated 284.7 MOS/KG (273-304); Total Protein 7.7 G/DL (6.4-8.3)
[2020-03-30 07:42] LABS: Basophils % 0.1 % (0.0-0.8); Eosinophils % 0.1 % (0.00-10.9); Hematocrit 35.5 VOL% (42.0-52.0); Immature Granulocytes % 0.8 %; Immature Granulocytes Absolute 0.12 #; Lymphocytes # 0.7 10*3/uL (1.4-4.0); Lymphocytes % 4.5 % (21.2-54.2); Mean Corpuscular HGB Conc 29.3 GM/DL (32-36); Mean Corpuscular Volume 83.1 FL (87-102); Monocytes % 6.5 % (1.7-12.7); NRBC # 0.24 10*3/uL; Red Blood Count 4.27 MC/CUMM (3.8-5.5); Red Cell Distribution Width 29.9 % (9.3-17.3); White Blood Count 15.5 T/CUMM (4-12)
[2020-03-30 07:43] LABS: Hemoglobin 10.4 GM/DL (14.0-18.0); Platelet Count 168 T/CUMM (130-400)
[2020-03-30 07:56] LABS: Lymphocytes 6 % (20-55); Platelet Estimate Normal; Segmented Neutrophils 88 % (50-85); Total Cells Counted 100
[2020-03-30 08:31] LABS: Calcium 8.4 MG/DL (8.5-10.1); Osmolality,Calculated 287.4 MOS/KG (273-304)
[2020-03-30] MEDS ORDERED: SODIUM BICARBONATE 50 MEQ/50 ML VIAL IV ONE (09:13)
[2020-03-30] MEDS ORDERED: DEXTROSE 50% 25 GM/50 ML VIAL IV ONE (09:16)
[2020-03-30] MEDS ORDERED: SODIUM BICARB INJ 50 MEQ in IV BAG 1 EACH IV SCH (10:00)
[2020-03-30] MEDS ORDERED: DEXTROSE 10% 250 ML BAG IV ONE (10:00)
[2020-03-30] MEDS ORDERED: INSULIN REGULAR 100 UNIT/ML IV ONE (10:00)
[2020-03-30] MEDS ORDERED: CALCIUM GLUCONATE 1,000 MG in SODIUM CHLORIDE 0.9% 100 ML IV ONE (10:00)
[2020-03-30] MEDS: ursodioL 300 MG CAPSULE PO SCH ×2 (10:15→21:58)
[2020-03-30] MEDS: DOCUSATE SODIUM 100 MG CAPSULE PO SCH ×2 (10:15→21:58)
[2020-03-30] MEDS: PANTOPRAZOLE 40 MG VIAL IV SCH (10:15)
[2020-03-30] MEDS: AMIODARONE 200 MG TABLET PO SCH (10:15)
[2020-03-30] MEDS: LEVOTHYROXINE 75 MCG TABLET PO SCH (10:15)
[2020-03-30 10:28] LABS: Hepatitis B Core IgM Quant 0.62 Index; Hepatitis B Surface Ag Quant < 0.10 Index; Hepatitis B Surface Ag Result Negative (Negative); Hepatitis C Virus Ab Quant 0.29 Index; Hepatitis C Virus Ab Result Negative (Negative)
[2020-03-30] MEDS: MORPHINE 4 MG/1 ML VIAL IV PRN (11:21)
[2020-03-30 12:10] LABS: Apearance,Urine CLOUDY (Clear); Bilirubin,Urine Negative (Negative); Blood, Urine Large mg/dL (Negative); Glucose,Urine (UA) Negative (Negative); Ketones,Urine Negative (Negative); Nitrite,Urine Negative (Negative); Protein,Urine 100 MG/DL; RBC,Urine 610 /HPF (0-4); Squamous Epithelial Cell,Urine Occasional /HPF (0-10); Urine Color Amber (Yellow); Urine Specific Gravity 1.025 (1.001-1.035); Urine Urobilinogen < 2.0 EU/DL (0.2-1.0); WBC,Urine 43 /HPF (0-6)
[2020-03-30] MEDS: METOPROLOL SUCCINATE XL 25 MG TABLET PO SCH (14:17)
[2020-03-30 15:42] LABS: Calcium 8.1 MG/DL (8.5-10.1); Osmolality,Calculated 288.5 MOS/KG (273-304)
[2020-03-30] MEDS: ENOXAPARIN 100 MG/ML SYRINGE SUBCUT SCH (17:39)
[2020-03-31] MEDS: INSULIN REGULAR 100 UNIT/ML SUBCUT SCH ×4 (01:19→17:58)
[2020-03-31 06:19] LABS: Basophils % 0.1 % (0.0-0.8); Eosinophils % 0.2 % (0.00-10.9); Hematocrit 32.5 VOL% (42.0-52.0); Hemoglobin 9.5 GM/DL (14.0-18.0); Immature Granulocytes % 0.7 %; Immature Granulocytes Absolute 0.09 #; Lymphocytes # 0.5 10*3/uL (1.4-4.0); Lymphocytes % 3.7 % (21.2-54.2); Mean Corpuscular HGB Conc 29.2 GM/DL (32-36); Mean Corpuscular Volume 83.3 FL (87-102); Mean Platelet Volume 10.5 FL (9.6-12.0); Monocytes % 7.1 % (1.7-12.7); NRBC # 0.54 10*3/uL; Neutrophils % 88.2 % (38.7-73.9); Platelet Count 154 T/CUMM (130-400); Red Cell Distribution Width 29.9 % (9.3-17.3); White Blood Count 12.2 T/CUMM (4-12)
[2020-03-31] MEDS: PIPERACILLIN/TAZOBACTAM 3,375 MG in SODIUM CHLORIDE 0.9% 100 ML IV SCH ×3 (06:23→21:57)
[2020-03-31 06:41] LABS: Anisocytosis 2+; Band Neutrophils 6 % (0-10); Lymphocytes 9 % (20-55); Nucleated Red Blood Cells 5 (0-5); Platelet Estimate Normal; Poikilocytosis 2+; Segmented Neutrophils 77 % (50-85); Total Cells Counted 100
[2020-03-31 06:42] LABS: Burr Cells 1+; Calcium 7.6 MG/DL (8.5-10.1); Giant Platelets Few; Osmolality,Calculated 288.7 MOS/KG (273-304)
[2020-03-31 06:59] LABS: Albumin 2.9 G/DL (3.4-5.0); Bilirubin,Direct 1.51 MG/DL (0.0-0.20); Bilirubin,Indirect 0.5 MG/DL (0.0-1.0); Total Protein 7.4 G/DL (6.4-8.3)
[2020-03-31] MEDS ORDERED: SODIUM POLYSTYRENE SULFATE 15 GM/60 ML BOTTLE PO ONE (07:31)
[2020-03-31] MEDS: DOCUSATE SODIUM 100 MG CAPSULE PO SCH ×2 (08:44→21:57)
[2020-03-31] MEDS: POLYETHYLENE GLYCOL POWDER 17 GM PACK PO SCH (08:44)
[2020-03-31] MEDS: AMIODARONE 200 MG TABLET PO SCH (08:44)
[2020-03-31] MEDS: ursodioL 300 MG CAPSULE PO SCH ×2 (08:44→21:57)
[2020-03-31] MEDS: LEVOTHYROXINE 75 MCG TABLET PO SCH (08:44)
[2020-03-31] MEDS: PANTOPRAZOLE 40 MG VIAL IV SCH (08:44)
[2020-03-31] MEDS: METOPROLOL SUCCINATE XL 25 MG TABLET PO SCH (08:45)
[2020-03-31] MEDS ORDERED: SODIUM BICARB INJ 50 MEQ in SODIUM CHLORIDE 0.45% 1,000 ML IV SCH (11:00)
[2020-03-31] MEDS: SODIUM BICARB INJ 150 MEQ in STERILE WATER INJ 850 ML IV SCH (14:20)
[2020-03-31] MEDS: ENOXAPARIN 100 MG/ML SYRINGE SUBCUT SCH (17:58)
[2020-04-01] MEDS: SODIUM BICARB INJ 150 MEQ in STERILE WATER INJ 850 ML IV SCH ×2 (00:21→11:15)
[2020-04-01] MEDS: INSULIN REGULAR 100 UNIT/ML SUBCUT SCH ×4 (00:22→18:39)
[2020-04-01] MEDS: PIPERACILLIN/TAZOBACTAM 3,375 MG in SODIUM CHLORIDE 0.9% 100 ML IV SCH ×2 (04:13→20:55)
[2020-04-01 05:55] LABS: Eosinophils # 0.1 10*3/uL (0.0-0.87); Eosinophils % 0.9 % (0.00-10.9); Hematocrit 30.2 VOL% (42.0-52.0); Hemoglobin 9.3 GM/DL (14.0-18.0); Immature Granulocytes % 1.1 %; Lymphocytes # 0.5 10*3/uL (1.4-4.0); Lymphocytes % 4.9 % (21.2-54.2); Mean Corpuscular HGB Conc 30.8 GM/DL (32-36); Mean Corpuscular Volume 80.1 FL (87-102); Mean Platelet Volume 10.4 FL (9.6-12.0); Monocytes % 7.7 % (1.7-12.7); NRBC # 0.16 10*3/uL; Neutrophils % 85.4 % (38.7-73.9); Platelet Count 152 T/CUMM (130-400); Red Blood Count 3.77 MC/CUMM (3.8-5.5); White Blood Count 9.4 T/CUMM (4-12)
[2020-04-01 06:14] LABS: Calcium 7.2 MG/DL (8.5-10.1); Osmolality,Calculated 293.5 MOS/KG (273-304)
[2020-04-01 06:32] LABS: Lymphocytes 5 % (20-55); Nucleated Red Blood Cells 1 (0-5); Segmented Neutrophils 87 % (50-85); Total Cells Counted 100
[2020-04-01 06:33] LABS: Anisocytosis 1+; Burr Cells 1+; Ovalocytes 1+; Platelet Estimate Normal
[2020-04-01] MEDS: AMIODARONE 200 MG TABLET PO SCH (08:12)
[2020-04-01] MEDS: DOCUSATE SODIUM 100 MG CAPSULE PO SCH ×2 (08:12→20:55)
[2020-04-01] MEDS: ursodioL 300 MG CAPSULE PO SCH ×2 (08:12→20:55)
[2020-04-01] MEDS: PANTOPRAZOLE 40 MG VIAL IV SCH (08:12)
[2020-04-01] MEDS: METOPROLOL SUCCINATE XL 25 MG TABLET PO SCH (08:12)
[2020-04-01] MEDS: LEVOTHYROXINE 75 MCG TABLET PO SCH (08:12)
[2020-04-01] MEDS: POLYETHYLENE GLYCOL POWDER 17 GM PACK PO SCH (08:14)
[2020-04-01 09:06] LABS: Albumin 2.8 G/DL (3.4-5.0); Bilirubin,Direct 1.29 MG/DL (0.0-0.20); Bilirubin,Indirect 0.4 MG/DL (0.0-1.0); Bilirubin,Total 1.7 MG/DL (0.2-1.0); Total Protein 7.3 G/DL (6.4-8.3)
[2020-04-01] MEDS: ENOXAPARIN 100 MG/ML SYRINGE SUBCUT SCH (18:16)
[2020-04-01] MEDS: MORPHINE 4 MG/1 ML VIAL IV PRN (19:28)
[2020-04-02] MEDS: INSULIN REGULAR 100 UNIT/ML SUBCUT SCH ×4 (01:28→18:07)
[2020-04-02] MEDS: SODIUM BICARB INJ 150 MEQ in STERILE WATER INJ 850 ML IV SCH ×2 (02:28→22:02)
[2020-04-02 05:37] LABS: Albumin 2.6 G/DL (3.4-5.0); Bilirubin,Direct 1.3 MG/DL (0.0-0.20); Bilirubin,Indirect 1.1 MG/DL (0.0-1.0); Bilirubin,Total 2.4 MG/DL (0.2-1.0); Total Protein 7.5 G/DL (6.4-8.3)
[2020-04-02 08:26] LABS: Basophils % 0.1 % (0.0-0.8); Eosinophils % 0.5 % (0.00-10.9); Hematocrit 31.1 VOL% (42.0-52.0); Hemoglobin 9.8 GM/DL (14.0-18.0); Immature Granulocytes % 0.6 %; Immature Granulocytes Absolute 0.05 #; Lymphocytes # 0.5 10*3/uL (1.4-4.0); Lymphocytes % 5.8 % (21.2-54.2); Mean Corpuscular HGB Conc 31.5 GM/DL (32-36); Mean Corpuscular Volume 77.2 FL (87-102); Monocytes % 9.8 % (1.7-12.7); NRBC # 0.23 10*3/uL; Neutrophils % 83.2 % (38.7-73.9); Platelet Count 152 T/CUMM (130-400); Red Blood Count 4.03 MC/CUMM (3.8-5.5); White Blood Count 8.2 T/CUMM (4-12)
[2020-04-02 08:49] LABS: Platelet Estimate Normal
[2020-04-02 08:50] LABS: Anisocytosis 2+; Burr Cells 2+; Calcium 7.9 MG/DL (8.5-10.1); Osmolality,Calculated 293.7 MOS/KG (273-304); Poikilocytosis 1+
[2020-04-02 08:54] LABS: Macrocytosis 1+; Polychromasia Slight
[2020-04-02] MEDS: DOCUSATE SODIUM 100 MG CAPSULE PO SCH ×2 (09:07→22:00)
[2020-04-02] MEDS: ursodioL 300 MG CAPSULE PO SCH ×2 (09:07→22:00)
[2020-04-02] MEDS: LEVOTHYROXINE 75 MCG TABLET PO SCH (09:07)
[2020-04-02] MEDS: AMIODARONE 200 MG TABLET PO SCH (09:09)
[2020-04-02] MEDS: POLYETHYLENE GLYCOL POWDER 17 GM PACK PO SCH (09:09)
[2020-04-02] MEDS: PANTOPRAZOLE 40 MG VIAL IV SCH (09:09)
[2020-04-02] MEDS: PIPERACILLIN/TAZOBACTAM 3,375 MG in SODIUM CHLORIDE 0.9% 100 ML IV SCH ×2 (09:10→21:59)
[2020-04-02] MEDS: METOPROLOL SUCCINATE XL 25 MG TABLET PO SCH (09:11)
[2020-04-02] MEDS: ENOXAPARIN 100 MG/ML SYRINGE SUBCUT SCH (18:08)
[2020-04-03 05:45] LABS: Basophils % 0.1 % (0.0-0.8); Eosinophils # 0.1 10*3/uL (0.0-0.87); Eosinophils % 0.9 % (0.00-10.9); Hematocrit 31.9 VOL% (42.0-52.0); Hemoglobin 10.1 GM/DL (14.0-18.0); Immature Granulocytes % 0.7 %; Immature Granulocytes Absolute 0.06 #; Lymphocytes # 0.6 10*3/uL (1.4-4.0); Lymphocytes % 6.8 % (21.2-54.2); Mean Corpuscular HGB Conc 31.7 GM/DL (32-36); Mean Corpuscular Volume 78.8 FL (87-102); Monocytes % 11.6 % (1.7-12.7); NRBC # 0.41 10*3/uL; Neutrophils % 79.9 % (38.7-73.9); Platelet Count 152 T/CUMM (130-400); Red Blood Count 4.05 MC/CUMM (3.8-5.5); Red Cell Distribution Width 30.3 % (9.3-17.3); White Blood Count 8.6 T/CUMM (4-12)
[2020-04-03 06:03] LABS: Albumin 2.8 G/DL (3.4-5.0); Bilirubin,Direct 1.33 MG/DL (0.0-0.20); Bilirubin,Indirect 0.5 MG/DL (0.0-1.0); Bilirubin,Total 1.8 MG/DL (0.2-1.0); Calcium 8.4 MG/DL (8.5-10.1); Osmolality,Calculated 293.8 MOS/KG (273-304); Total Protein 7.7 G/DL (6.4-8.3)
[2020-04-03] MEDS: INSULIN REGULAR 100 UNIT/ML SUBCUT SCH ×4 (06:44→17:30)
[2020-04-03] MEDS: PANTOPRAZOLE 40 MG VIAL IV SCH (09:45)
[2020-04-03] MEDS: POLYETHYLENE GLYCOL POWDER 17 GM PACK PO SCH (09:45)
[2020-04-03] MEDS: LEVOTHYROXINE 75 MCG TABLET PO SCH (09:46)
[2020-04-03] MEDS: DOCUSATE SODIUM 100 MG CAPSULE PO SCH ×2 (09:46→20:52)
[2020-04-03] MEDS: ursodioL 300 MG CAPSULE PO SCH ×2 (09:47→20:52)
[2020-04-03] MEDS: AMIODARONE 200 MG TABLET PO SCH (09:47)
[2020-04-03] MEDS: PIPERACILLIN/TAZOBACTAM 3,375 MG in SODIUM CHLORIDE 0.9% 100 ML IV SCH ×2 (09:52→20:51)
[2020-04-03] MEDS: METOPROLOL SUCCINATE XL 25 MG TABLET PO SCH (09:57)
[2020-04-03] MEDS: ENOXAPARIN 100 MG/ML SYRINGE SUBCUT SCH (17:29)
[2020-04-03] MEDS: SODIUM BICARB INJ 150 MEQ in STERILE WATER INJ 850 ML IV SCH (17:38)
[2020-04-04] MEDS: INSULIN REGULAR 100 UNIT/ML SUBCUT SCH ×4 (00:39→18:24)
[2020-04-04] MEDS ORDERED: SODIUM CHLORIDE 0.9% 250 ML IV ONE ×3 (04:48→10:50)
[2020-04-04 05:21] LABS: Hematocrit 33.8 VOL% (42.0-52.0); Hemoglobin 10.3 GM/DL (14.0-18.0); Immature Granulocytes % 0.9 %; Immature Granulocytes Absolute 0.09 #; Lymphocytes # 0.4 10*3/uL (1.4-4.0); Lymphocytes % 3.7 % (21.2-54.2); Mean Corpuscular HGB Conc 30.5 GM/DL (32-36); Mean Corpuscular Volume 80.1 FL (87-102); NRBC # 0.84 10*3/uL; Neutrophils % 87.4 % (38.7-73.9); Platelet Count 164 T/CUMM (130-400); Red Blood Count 4.22 MC/CUMM (3.8-5.5); White Blood Count 10.1 T/CUMM (4-12)
[2020-04-04 05:54] LABS: Albumin 2.5 G/DL (3.4-5.0); Bilirubin,Direct 1.68 MG/DL (0.0-0.20); Bilirubin,Indirect 0.5 MG/DL (0.0-1.0); Bilirubin,Total 2.2 MG/DL (0.2-1.0); Calcium 8.7 MG/DL (8.5-10.1); Osmolality,Calculated 295.9 MOS/KG (273-304); Total Protein 7.6 G/DL (6.4-8.3)
[2020-04-04 08:18] LABS: Band Neutrophils 2 % (0-10); Lymphocytes 9 % (20-55); Nucleated Red Blood Cells 10 (0-5); Platelet Estimate Normal; Segmented Neutrophils 82 % (50-85); Total Cells Counted 100
[2020-04-04 08:19] LABS: Anisocytosis 2+; Burr Cells Few; Macrocytosis 1+; Poikilocytosis 1+
[2020-04-04] MEDS: PIPERACILLIN/TAZOBACTAM 3,375 MG in SODIUM CHLORIDE 0.9% 100 ML IV SCH ×2 (09:13→21:35)
[2020-04-04] MEDS: PANTOPRAZOLE 40 MG VIAL IV SCH (09:14)
[2020-04-04] MEDS: METOPROLOL SUCCINATE XL 25 MG TABLET PO SCH (09:15)
[2020-04-04] MEDS ORDERED: SODIUM POLYSTYRENE SULFATE 15 GM/60 ML BOTTLE PO STA (10:13)
[2020-04-04] MEDS: AMIODARONE 200 MG TABLET PO SCH (11:07)
[2020-04-04] MEDS: ursodioL 300 MG CAPSULE PO SCH (11:09)
[2020-04-04] MEDS: POLYETHYLENE GLYCOL POWDER 17 GM PACK PO SCH (11:09)
[2020-04-04] MEDS: LEVOTHYROXINE 75 MCG TABLET PO SCH (11:09)
[2020-04-04] MEDS: DOCUSATE SODIUM 100 MG CAPSULE PO SCH (11:09)
[2020-04-04] MEDS ORDERED: SODIUM BICARBONATE 50 MEQ/50 ML VIAL IV ONE ×3 (11:11→13:17)
[2020-04-04] MEDS ORDERED: NOREPINEPHRINE 4 MG/4 ML VIAL IV ONE ×2 (11:12→11:14)
[2020-04-04] MEDS ORDERED: ETOMIDATE 20 MG/10 ML VIAL IV ONE (11:13)
[2020-04-04] MEDS: NOREPINEPHRINE 8 MG in SODIUM CHLORIDE 0.9% 242 ML IV PRN (11:19)
[2020-04-04] MEDS ORDERED: ALBUMIN 5% 12.5 GM/250 ML VIAL IV ONE (11:21)
[2020-04-04] MEDS ORDERED: NOREPINEPHRINE 8 MG in SODIUM CHLORIDE 0.9% 242 ML IV PRN (11:32)
[2020-04-04] MEDS ORDERED: CALCIUM CHLORIDE 1,000 MG/10 ML SYRINGE IV ONE (11:32)
[2020-04-04] MEDS ORDERED: ALBUMIN 25% 12.5 GM in PREMIX 1 EACH IV ONE (11:32)
[2020-04-04] MEDS ORDERED: SODIUM CHLORIDE 0.9% 500 ML IV ONE (11:34)
[2020-04-04] MEDS ORDERED: MIDAZOLAM 2 MG/2 ML VIAL ONE (11:38)
[2020-04-04 12:25] LABS: ABG Base Excess -10.7 MMOL/L (-2.5-2.5); ABG PCO2 42.2 MM HG (35-48); ABG TCO2 15.7 MMOL/L (23-27)
[2020-04-04 12:28] LABS: ABG PH 7.209 (7.35-7.45)
[2020-04-04 12:58] LABS: Basophils % 0.1 % (0.0-0.8); Eosinophils % 0.1 % (0.00-10.9); Hematocrit 34.8 VOL% (42.0-52.0); Hemoglobin 10.5 GM/DL (14.0-18.0); Immature Granulocytes % 0.7 %; Immature Granulocytes Absolute 0.08 #; Lymphocytes # 0.5 10*3/uL (1.4-4.0); Lymphocytes % 4.1 % (21.2-54.2); Mean Corpuscular HGB Conc 30.2 GM/DL (32-36); Mean Corpuscular Volume 80.9 FL (87-102); Monocytes % 6.8 % (1.7-12.7); NRBC # 0.98 10*3/uL; Neutrophils % 88.2 % (38.7-73.9); Platelet Count 164 T/CUMM (130-400); Red Cell Distribution Width 31.2 % (9.3-17.3); White Blood Count 11.9 T/CUMM (4-12)
[2020-04-04 13:01] LABS: ABG Base Excess -11.4 MMOL/L (-2.5-2.5); ABG HCO3 15.5 MMOL/L (20-26); ABG PCO2 41.1 MM HG (35-48)
[2020-04-04 13:03] LABS: ABG PH 7.203 (7.35-7.45)
[2020-04-04] MEDS: MIDAZOLAM 100 MG in SODIUM CHLORIDE 0.9% 80 ML IV PRN ×2 (13:15→21:44)
[2020-04-04 13:17] LABS: Albumin 2.7 G/DL (3.4-5.0); Bilirubin,Total 2.3 MG/DL (0.2-1.0); Osmolality,Calculated 302.4 MOS/KG (273-304); Total Protein 7.5 G/DL (6.4-8.3)
[2020-04-04] MEDS: HYDROCORTISONE 100 MG VIAL IV SCH ×2 (13:30→18:39)
[2020-04-04] MEDS: SODIUM BICARB INJ 150 MEQ in STERILE WATER INJ 850 ML IV SCH ×2 (13:35→23:35)
[2020-04-04] MEDS ORDERED: HEPARIN/NACL 0.9% 2 UNITS/ML 500 ML IV ONE (13:40)
[2020-04-04] MEDS: DEXTROSE 50% 25 GM/50 ML VIAL IV PRN (13:41)
[2020-04-04 14:32] LABS: Band Neutrophils 2 % (0-10); Lymphocytes 11 % (20-55); Nucleated Red Blood Cells 7 (0-5); Segmented Neutrophils 83 % (50-85); Total Cells Counted 100
[2020-04-04 14:33] LABS: Poikilocytosis 2+; Polychromasia 2+; Target Cells Slight
[2020-04-04 14:34] LABS: Platelet Estimate Adequate
[2020-04-04 14:36] LABS: Acanthocytes Few; Burr Cells 2+
[2020-04-04 14:55] LABS: ABG Base Excess -8.6 MMOL/L (-2.5-2.5); ABG HCO3 17.5 MMOL/L (20-26); ABG PCO2 33.9 MM HG (35-48); ABG PH 7.306 (7.35-7.45); ABG TCO2 15.6 MMOL/L (23-27)
[2020-04-04] MEDS: ENOXAPARIN 100 MG/ML SYRINGE SUBCUT SCH (18:38)
[2020-04-05] MEDS: INSULIN REGULAR 100 UNIT/ML SUBCUT SCH ×5 (00:40→23:30)
[2020-04-05] MEDS: NOREPINEPHRINE 8 MG in SODIUM CHLORIDE 0.9% 242 ML IV PRN ×4 (00:50→19:46)
[2020-04-05] MEDS: SODIUM BICARB INJ 150 MEQ in STERILE WATER INJ 850 ML IV SCH ×2 (03:47→09:41)
[2020-04-05] MEDS: HYDROCORTISONE 100 MG VIAL IV SCH ×3 (04:15→17:59)
[2020-04-05 04:54] LABS: ABG Base Excess -7.5 MMOL/L (-2.5-2.5); ABG HCO3 16.9 MMOL/L (20-26); ABG Oxygen Saturation 99.4 % (95-100); ABG PCO2 30.8 MM HG (35-48); ABG PH 7.358 (7.35-7.45); ABG PO2 199.6 MM HG (80-95); ABG TCO2 17.9 MMOL/L (23-27)
[2020-04-05] MEDS: LEVOTHYROXINE 100 MCG VIAL IV SCH (07:10)
[2020-04-05 07:20] LABS: Osmolality,Calculated 304.7 MOS/KG (273-304)
[2020-04-05 07:23] LABS: Hematocrit 33.6 VOL% (42.0-52.0); Hemoglobin 10.7 GM/DL (14.0-18.0); Immature Granulocytes % 0.6 %; Immature Granulocytes Absolute 0.07 #; Lymphocytes # 0.1 10*3/uL (1.4-4.0); Lymphocytes % 0.6 % (21.2-54.2); Mean Corpuscular HGB Conc 31.8 GM/DL (32-36); Mean Corpuscular Volume 77.1 FL (87-102); Monocytes % 5.8 % (1.7-12.7); NRBC # 1.57 10*3/uL; Platelet Count 175 T/CUMM (130-400); Red Blood Count 4.36 MC/CUMM (3.8-5.5); Red Cell Distribution Width 30.4 % (9.3-17.3); White Blood Count 11.3 T/CUMM (4-12)
[2020-04-05 07:30] LABS: Albumin 2.5 G/DL (3.4-5.0); Bilirubin,Direct 2.2 MG/DL (0.0-0.20); Bilirubin,Indirect 0.5 MG/DL (0.0-1.0); Bilirubin,Total 2.7 MG/DL (0.2-1.0); Total Protein 7.2 G/DL (6.4-8.3)
[2020-04-05] MEDS: AMIODARONE 200 MG TABLET PO SCH (08:18)
[2020-04-05] MEDS: PIPERACILLIN/TAZOBACTAM 3,375 MG in SODIUM CHLORIDE 0.9% 100 ML IV SCH ×2 (08:19→20:12)
[2020-04-05] MEDS: PANTOPRAZOLE 40 MG VIAL IV SCH (08:19)
[2020-04-05 08:29] LABS: Anisocytosis 3+; Band Neutrophils 2 % (0-10); Lymphocytes 5 % (20-55); Nucleated Red Blood Cells 18 (0-5); Platelet Estimate Normal; Polychromasia 1+; Segmented Neutrophils 89 % (50-85); Smudge Cells Few; Total Cells Counted 100
[2020-04-05 08:30] LABS: Burr Cells 2+; Macrocytosis 2+; Target Cells Few
[2020-04-05] MEDS ORDERED: NOREPINEPHRINE 4 MG/4 ML VIAL IV ONE (13:54)
[2020-04-05] MEDS: ENOXAPARIN 100 MG/ML SYRINGE SUBCUT SCH (17:52)
[2020-04-05] MEDS: MIDAZOLAM 100 MG in SODIUM CHLORIDE 0.9% 80 ML IV PRN (20:27)
[2020-04-06] MEDS: NOREPINEPHRINE 8 MG in SODIUM CHLORIDE 0.9% 242 ML IV PRN (00:31)
[2020-04-06] MEDS: HYDROCORTISONE 100 MG VIAL IV SCH ×3 (03:50→18:25)
[2020-04-06 04:17] LABS: ABG Base Excess -8.6 MMOL/L (-2.5-2.5); ABG HCO3 17.5 MMOL/L (20-26); ABG PCO2 33.7 MM HG (35-48); ABG PH 7.308 (7.35-7.45); ABG TCO2 15.5 MMOL/L (23-27)
[2020-04-06] MEDS: NOREPINEPHRINE 16 MG in SODIUM CHLORIDE 0.9% 234 ML IV PRN ×3 (04:33→18:33)
[2020-04-06 04:34] LABS: Basophils % 0.1 % (0.0-0.8); Hematocrit 32.1 VOL% (42.0-52.0); Immature Granulocytes % 0.8 %; Lymphocytes # 0.3 10*3/uL (1.4-4.0); Lymphocytes % 2.7 % (21.2-54.2); Mean Corpuscular HGB Conc 31.2 GM/DL (32-36); Mean Corpuscular Volume 78.9 FL (87-102); Monocytes % 7.2 % (1.7-12.7); NRBC # 3.04 10*3/uL; Neutrophils % 89.2 % (38.7-73.9); Platelet Count 192 T/CUMM (130-400); Red Blood Count 4.07 MC/CUMM (3.8-5.5); Red Cell Distribution Width 30.7 % (9.3-17.3); White Blood Count 12.4 T/CUMM (4-12)
[2020-04-06 04:43] LABS: Osmolality,Calculated 308.7 MOS/KG (273-304)
[2020-04-06 04:50] LABS: Albumin 2.4 G/DL (3.4-5.0); Bilirubin,Direct 2.09 MG/DL (0.0-0.20); Bilirubin,Indirect 0.4 MG/DL (0.0-1.0); Bilirubin,Total 2.5 MG/DL (0.2-1.0); Total Protein 7.3 G/DL (6.4-8.3)
[2020-04-06 04:53] LABS: Lymphocytes 5 % (20-55); Macrocytosis Slight; Nucleated Red Blood Cells 25 (0-5); Platelet Estimate Adequate; Segmented Neutrophils 90 % (50-85); Total Cells Counted 100
[2020-04-06 04:54] LABS: Polychromasia Slight
[2020-04-06] MEDS: INSULIN REGULAR 100 UNIT/ML SUBCUT SCH ×3 (05:51→18:24)
[2020-04-06] MEDS: SODIUM BICARB INJ 150 MEQ in STERILE WATER INJ 850 ML IV SCH (05:53)
[2020-04-06] MEDS ORDERED: HEPARIN DRIP 25,000 UNITS/500 ML PREMIX IV SCH (08:00)
[2020-04-06] MEDS ORDERED: DOPamine 800 MG/250 ML PREMIX IV PRN (08:28)
[2020-04-06] MEDS: PHENYLEPHRINE INJ 160 MG in SODIUM CHLORIDE 0.9% 234 ML IV PRN ×2 (08:40→18:33)
[2020-04-06] MEDS: LEVOTHYROXINE 100 MCG VIAL IV SCH (09:30)
[2020-04-06] MEDS: PANTOPRAZOLE 40 MG VIAL IV SCH (09:30)
[2020-04-06] MEDS: PIPERACILLIN/TAZOBACTAM 3,375 MG in SODIUM CHLORIDE 0.9% 100 ML IV SCH ×2 (09:45→21:26)
[2020-04-06] MEDS ORDERED: ALBUMIN 5% 12.5 GM in PREMIX 1 EACH IV ONE (10:00)
[2020-04-06 11:35] LABS: ABG Base Excess -11.7 MMOL/L (-2.5-2.5); ABG HCO3 15.3 MMOL/L (20-26); ABG PCO2 32.8 MM HG (35-48); ABG PH 7.254 (7.35-7.45); ABG TCO2 13.4 MMOL/L (23-27); Glucose Heart Surgery 139 MG/DL (74-106); Hematocrit Heart Surgery 32.5 PERCENT (42-52); Hemoglobin Heart Surgery 10.5 G/DL (14.0-18.0)
[2020-04-06 11:37] LABS: Potassium Heart/CVR 6.1 MMOL/L (3.5-5.1)
[2020-04-06] MEDS: DEXTROSE 50% 25 GM/50 ML VIAL IV PRN (18:31)
[2020-04-06] MEDS ORDERED: HEPARIN 10,000 UNIT/10 ML VIAL IV SCH (19:00)
[2020-04-06] MEDS ORDERED: ALBUMIN 25% 25 GM in PREMIX 1 EACH IV PRN (19:09)
[2020-04-07] MEDS: DEXTROSE 50% 25 GM/50 ML VIAL IV PRN ×5 (00:11→23:00)
[2020-04-07] MEDS: INSULIN REGULAR 100 UNIT/ML SUBCUT SCH ×5 (00:12→23:46)
[2020-04-07] MEDS: NOREPINEPHRINE 16 MG in SODIUM CHLORIDE 0.9% 234 ML IV PRN ×4 (02:14→22:49)
[2020-04-07] MEDS: SODIUM BICARB INJ 150 MEQ in STERILE WATER INJ 850 ML IV SCH ×2 (02:25→23:45)
[2020-04-07 03:19] LABS: ABG Base Excess -15.3 MMOL/L (-2.5-2.5); ABG HCO3 12.8 MMOL/L (20-26); ABG Oxygen Saturation 99.3 % (95-100); ABG PCO2 33.7 MM HG (35-48); ABG TCO2 11.6 MMOL/L (23-27)
[2020-04-07 03:21] LABS: ABG PH 7.173 (7.35-7.45)
[2020-04-07] MEDS: PHENYLEPHRINE INJ 160 MG in SODIUM CHLORIDE 0.9% 234 ML IV PRN ×3 (03:40→18:20)
[2020-04-07 03:46] LABS: Basophils % 0.1 % (0.0-0.8); Hematocrit 33.4 VOL% (42.0-52.0); Hemoglobin 9.9 GM/DL (14.0-18.0); Immature Granulocytes % 1.5 %; Immature Granulocytes Absolute 0.28 #; Lymphocytes # 0.5 10*3/uL (1.4-4.0); Lymphocytes % 2.9 % (21.2-54.2); Mean Corpuscular HGB Conc 29.6 GM/DL (32-36); Mean Corpuscular Volume 83.1 FL (87-102); Monocytes % 6.8 % (1.7-12.7); NRBC # 3.49 10*3/uL; Neutrophils % 88.7 % (38.7-73.9); Platelet Count 132 T/CUMM (130-400); Red Blood Count 4.02 MC/CUMM (3.8-5.5); Red Cell Distribution Width 31.4 % (9.3-17.3); White Blood Count 18.5 T/CUMM (4-12)
[2020-04-07 03:54] LABS: Calcium 8.1 MG/DL (8.5-10.1); Osmolality,Calculated 300.7 MOS/KG (273-304)
[2020-04-07] MEDS: HYDROCORTISONE 100 MG VIAL IV SCH ×3 (04:19→18:00)
[2020-04-07 04:28] LABS: Lymphocytes 3 % (20-55); Nucleated Red Blood Cells 17 (0-5); Segmented Neutrophils 91 % (50-85); Total Cells Counted 100
[2020-04-07 04:29] LABS: Hypochromasia 1+; Macrocytosis Slight
[2020-04-07 04:30] LABS: Polychromasia Slight
[2020-04-07 04:36] LABS: Albumin 2.8 G/DL (3.4-5.0); Bilirubin,Direct 2.54 MG/DL (0.0-0.20); Bilirubin,Indirect 0.7 MG/DL (0.0-1.0); Bilirubin,Total 3.2 MG/DL (0.2-1.0); Total Protein 7.2 G/DL (6.4-8.3)
[2020-04-07 06:04] LABS: ABG Base Excess -15.6 MMOL/L (-2.5-2.5); ABG HCO3 12.5 MMOL/L (20-26); ABG Oxygen Saturation 98.8 % (95-100); ABG PCO2 36.6 MM HG (35-48); ABG TCO2 11.9 MMOL/L (23-27)
[2020-04-07 06:06] LABS: ABG PH 7.145 (7.35-7.45)
[2020-04-07] MEDS: PANTOPRAZOLE 40 MG VIAL IV SCH (08:20)
[2020-04-07] MEDS: LEVOTHYROXINE 100 MCG VIAL IV SCH (08:20)
[2020-04-07] MEDS: PIPERACILLIN/TAZOBACTAM 3,375 MG in SODIUM CHLORIDE 0.9% 100 ML IV SCH ×2 (08:25→22:49)
[2020-04-07] MEDS ORDERED: SODIUM BICARBONATE 50 MEQ/50 ML VIAL IV ONE (13:11)
[2020-04-07 19:07] VITALS: BP 76/48
== END 2020-04-08 03:16 | disposition expired | DRG 871 ==
LOC: N.ED 17:49 → N.EDINP 21:49 → SUATTDRO 21:49 → N.ICU 23:50 → N.3E 03-29 16:42 → N.ICU 04-04 11:06
PROVIDERS: ADMIT Internal Medicine; ATTEND Internal Medicine